=== PATIENT | male | born 1975 | race Caucasian/White ===

== ENCOUNTER 2021-04-26 10:06 | Day surgery (SDC) | payer BC, SELFPAY ==
[2021-04-26] VITALS (8 sets, daily range): BP systolic 87–131; BP diastolic 60–94; PULSE 76–106; RESP 14–20; TEMP 36.1–36.7; O2SAT 96–100; BMI 25.0
--- NOTE | 2021-04-26 10:38 | PCM.HP.BLA ---
History and Physical Date of Admission: 04/26/21 I have re-examined the patient. There are no clinical changes since date of exam. Patient states that he does have some anxiety about being under sedation for the first time. However, he confirms that his bowel prep went well and was gentle. He states that he lost 7 pounds through it and his output is just as clear as his input (which has been Gatorade). We will plan to proceed for EGD and colonoscopy under local MAC with indications being prior severe GERD, IBS, and positive Cologuard.
[2021-04-26] MEDS: Lactated Ringers 1,000 ML 15 ML IV (10:49)
--- NOTE | 2021-04-26 11:15 | IMM_PTH ---
PATIENT: CARLOS ENRIQUE BELTRAN LOC: [facility] U#:[id number] AGE/SX: 46/M ROOM: RE04/26/[address]: Dr. Kareem Haider MD : 1975 BED: DIS: 04/26/2021 SPEC #: [id number] RECD: 04/26/21 14:58 STATUS: LORETTA RESamuel #: [id number] ELLEN: 04/26/21 11:[address]: Kareem Haider DEPT: IMMUNOHISTOCHEMISTRY RECD BY: Raquel Correa ENTERED: 04/26/21 14:58 SP TYPE: IMMUNO OTHR DR: Dr. Tramaine Prado MD Tissues: A - Stomach, NOS Procedures: H Pylori (initial) PHYSICIAN & INSTITUTION [place] [address] SPECIMEN INFORMATION: Tissue Source: A - Antrum biopsy Clinical Info: Severe GERD, IBS, positive Cologuard Specimen Number: [id number] CPT code: 26627 METHODOLOGY: Deparaffinized sections of prefer/formalin-fixed tissue or PAP/DQ stained slides are incubated with monoclonal/polyclonal antibodies/oligonucleotide probes. Localization is made via biotin free immunoperoxidase method. Appropriate controls are performed and reacted as expected. Results on target cell population are indicated in the following table: RESULTS: ANTIBODY / CLONE RESULT Block A H Pylori (polyclonal) negative These tests were developed and their performance characteristics determined by [facility]. They may not have been cleared or approved by the U.S. Food and Drug Administration. The FDA has determined that such clearance or approval is not necessary. INTERPRETATION: A. Antrum biopsy: Negative for Helicobacter pylori organisms. AM:kyra 04/30/2021
--- NOTE | 2021-04-26 11:15 | EGD_PTH ---
PATIENT: CARLOS ENRIQUE BELTRAN LOC: EN U#:[id number] AGE/SX: 46/M ROOM: RE04/26/[address]: Dr. Kareem Haider MD : 1975 BED: DIS: 04/26/2021 SPEC #: [id number] RECD: 04/26/21 13:09 STATUS: LORETTA SRINIVASA #: [id number] ELLEN: 04/26/21 11:[address]: Kareem Haider DEPT: SURGICAL PATHOLOGY RECD BY: Lacey Correa ENTERED: 04/26/21 14:22 SP TYPE: EGD BIOPSY OT DR: Dr. Tramaine Prado MD Tissues: A - Gastric mucous membrane B - COLON BIOPSY C - Stomach, NOS Procedures: Special Stain Group II Surgery Specimen Level IV Alcian Blue/PAS (control) HEADER OPERATION: Colonoscopy, EGD ([facility] [place]) PRE-OP DIAGNOSIS: Severe GERD, IBS, positive Cologuard TISSUE SUBMITTED: A ? Antrum biopsy for H. pylori and path, B ? Posterior lesser curvature polyp, C ? GE junction biopsy MICROSCOPIC DIAGNOSIS A. Gastric antrum, biopsy: Chronic gastritis. See comment. B. Posterior lesser curvature of stomach polyp, biopsy: Superficial fragments of gastric mucosa. C. Gastroesophageal junction, biopsy: Chronic inflammation. No evidence of goblet cell metaplasia. Focal changes of reflux. See comment. AM:kyra 04/29/2021 COMMENT A. The results of immunohistochemistry for Helicobacter pylori will be reported separately ([id number]). C. Alcian blue/PAS stain with matched control supports the above diagnosis. MICROSCOPIC DESCRIPTION Slides are reviewed. GROSS DESCRIPTION A - Received in fixative is one container labeled with the patient's name and designated gastric antrum. The specimen consists of one irregular fragment of light woods soft tissue that measures 0.7 x 0.3 x 0.1 cm. The specimen is totally submitted in one cassette. B - Received in fixative is one container labeled with the patient's name and designated posterior lesser curvature polyp. The specimen consists of multiple irregular fragments of light woods soft tissue that in aggregate measure 0.5 x 0.5 x 0.1 cm. The specimen is totally submitted in one cassette. C - Received in fixative is one container labeled with the patient's name and designated GE junction biopsy. The specimen consists of multiple irregular fragments of light woods soft tissue that in aggregate measure 0.5 x 0.5 x 0.1 cm. The specimen is totally submitted in one cassette. / AM:kyra 04/26/21 TC:3 CPT: 78430 x3, 27230
--- NOTE | 2021-04-26 12:43 | OP.CCLET_ITS ---
04/26/2021 Tramaine Prado Md Re : Upper GI endoscopy procedure for Tyler Vazquez Dear [place] This procedure was performed on Monday, April 26, 2021. My impressions and recommendations are as follows: Impressions : - Normal second portion of the duodenum. No specimens collected. - Gastritis. Biopsied. - A single gastric polyp. Resected and retrieved. - Large hiatal hernia. No specimens collected. - LA Grade A esophagitis. Biopsied. - Z-line regular, 38 cm from the incisors. No specimens collected. Recommendations : - Discharge patient to home (via wheelchair). - Resume regular diet today. - Continue present medications. - Await pathology results. - Telephone my office for pathology results in 1 week. My findings are described in the full procedure note, which is enclosed. If I can be of further assistance, please feel free to contact me at Doctor phone number(s): , Work: . Sincerely, Kareem Haider MD 04/26/2021 12:43:08 PM This report has been signed electronically.
--- NOTE | 2021-04-26 12:43 | OP.EGD_ITS ---
Patient Name: Tyler Vazquez Procedure Date: 04/26/2021 11:30 AM Date of : 1975 Age: 46 Procedure: Upper GI endoscopy Indications: Gastro-esophageal reflux disease Providers: Kareem Haider MD Medicines: See the Anesthesia note for documentation of the administered medications Patient Profile: Refer to note in patient chart for documentation of history and physical. Complications: No immediate complications. Estimated blood loss: Minimal. Procedure: Pre-Anesthesia Assessment: - The anesthesia plan was to use moderate sedation/analgesia (conscious sedation). - The heart rate, respiratory rate, oxygen saturations, blood pressure, adequacy of pulmonary ventilation, and response to care were monitored throughout the procedure. After obtaining informed consent, the endoscope was passed under direct vision. Throughout the procedure, the patient's blood pressure, pulse, and oxygen saturations were monitored continuously. The Endoscope was introduced through the mouth, and advanced to the second part of duodenum. The upper GI endoscopy was technically difficult and complex due to abnormal anatomy. Successful completion of the procedure was aided by using scope torsion. Scope In: 11:40:55 AM Scope Out: 12:03:02 PM Total Procedure Duration Time 0 hours 22 minutes 7 seconds Findings: The second portion of the duodenum was normal. No biopsies or other specimens were collected for this exam. Localized mild inflammation characterized by erythema was found in the gastric antrum. Biopsies were taken with a cold forceps for histology. Biopsies were taken with a cold forceps for Helicobacter pylori cultures. Estimated blood loss was minimal. A single 5 mm pedunculated and sessile polyp with no bleeding and no stigmata of recent bleeding was found on the posterior wall of the stomach. The polyp was removed with a hot snare. Resection was complete, and retrieval was complete. Estimated blood loss was minimal. A large hiatal hernia was present. No biopsies or other specimens were collected for this exam. LA Grade A (one or more mucosal breaks less than 5 mm, not extending between tops of 2 mucosal folds) esophagitis with no bleeding was found 37 to 38 cm from the incisors. Biopsies were taken with a cold forceps for histology. Estimated blood loss was minimal. The Z-line was regular and was found 38 cm from the incisors. No biopsies or other specimens were collected for this exam. Impression: - Normal second portion of the duodenum. No specimens collected. - Gastritis. Biopsied. - A single gastric polyp. Resected and retrieved. - Large hiatal hernia. No specimens collected. - LA Grade A esophagitis. Biopsied. - Z-line regular, 38 cm from the incisors. No specimens collected. Recommendation: - Discharge patient to home (via wheelchair). - Resume regular diet today. - Continue present medications. - Await pathology results. - Telephone my office for pathology results in 1 week. Procedure Code(s): --- Professional --- 43264, Esophagogastroduodenoscopy, flexible, transoral; with removal of tumor(s), polyp(s), or other lesion(s) by snare technique 43203, 59, Esophagogastroduodenoscopy, flexible, transoral; with biopsy, single or multiple Diagnosis Code(s): --- Professional --- K29.70, Gastritis, unspecified, without bleeding K31.7, Polyp of stomach and duodenum K44.9, Diaphragmatic hernia without obstruction or gangrene K20.9, Esophagitis, unspecified K21.9, Gastro-esophageal reflux disease without esophagitis CPT copyright 2017 [employer]. All rights reserved. The codes documented in this report are preliminary and upon news clipping cutter review may be revised to meet current compliance requirements. Kareem Haider MD 04/26/2021 12:43:08 PM This report has been signed electronically. Number of Addenda: 0 Note Initiated On: 04/26/2021 11:30 AM
--- NOTE | 2021-04-26 12:48 | OP.CCLET_ITS ---
04/26/2021 Tramaine Prado Md Re : Colonoscopy procedure for Tyler Vazquez Dear Eve This procedure was performed on Monday, April 26, 2021. My impressions and recommendations are as follows: Impressions : - There was significant looping of the colon. - There was significant looping of the colon. - The entire examined colon is normal. No specimens collected. - The distal rectum and anal verge are normal on retroflexion view. Recommendations : - Discharge patient to home (via wheelchair). - Resume regular diet today. - Continue present medications. - Repeat colonoscopy in 5 years for screening purposes. - Telephone my office for study results in 1 week. My findings are described in the full procedure note, which is enclosed. If I can be of further assistance, please feel free to contact me at Doctor phone number(s): , Work: . Sincerely, Kareem Haider MD 04/26/2021 12:48:35 PM This report has been signed electronically.
--- NOTE | 2021-04-26 12:48 | OP.COLON_ITS ---
Patient Name: Tyler Vazquez Procedure Date: 04/26/2021 12:05 PM Date of : 1975 Age: 46 Procedure: Colonoscopy Indications: Positive Cologuard test Providers: Kareem Haider MD Medicines: See the Anesthesia note for documentation of the administered medications Patient Profile: Refer to note in patient chart for documentation of history and physical. Refer to note in patient chart for documentation of history and physical. Last Colonoscopy: none. The patient's first colonoscopy is today. Complications: No immediate complications. Estimated blood loss: None. Procedure: Pre-Anesthesia Assessment: - The anesthesia plan was to use moderate sedation/analgesia (conscious sedation). - The heart rate, respiratory rate, oxygen saturations, blood pressure, adequacy of pulmonary ventilation, and response to care were monitored throughout the procedure. - The anesthesia plan was to use moderate sedation/analgesia (conscious sedation). - The heart rate, respiratory rate, oxygen saturations, blood pressure, adequacy of pulmonary ventilation, and response to care were monitored throughout the procedure. After I obtained informed consent, the scope was passed under direct vision. Throughout the procedure, the patient's blood pressure, pulse, and oxygen saturations were monitored continuously. The pediatric colonoscope was introduced through the anus and advanced to the cecum, identified by the ileocecal valve. The colonoscopy was technically difficult and complex due to unusual anatomy. Successful completion of the procedure was aided by applying abdominal pressure. The patient tolerated the procedure fairly well. The quality of the bowel preparation was adequate to identify polyps. Scope In: 12:07:05 PM Scope Withdrawal Time 0 hours 17 minutes 30 seconds Scope Out: 12:34:29 PM Total Procedure Duration Time 0 hours 27 minutes 24 seconds Findings: The ascending colon revealed mildly excessive looping. Advancing the scope required using manual pressure. The sigmoid colon revealed moderately excessive looping. Advancing the scope required using manual pressure. The colon (entire examined portion) appeared normal. No biopsies or other specimens were collected for this exam. The retroflexed view of the distal rectum and anal verge was normal and showed no anal or rectal abnormalities. No biopsies or other specimens were collected for this exam. Impression: - There was significant looping of the colon. - There was significant looping of the colon. - The entire examined colon is normal. No specimens collected. - The distal rectum and anal verge are normal on retroflexion view. Recommendation: - Discharge patient to home (via wheelchair). - Resume regular diet today. - Continue present medications. - Repeat colonoscopy in 5 years for screening purposes. - Telephone my office for study results in 1 week. Procedure Code(s): --- Professional --- 59455, Colonoscopy, flexible; diagnostic, including collection of specimen(s) by brushing or washing, when performed (separate procedure) Diagnosis Code(s): --- Professional --- R19.5, Other fecal abnormalities CPT copyright 2017 [employer]. All rights reserved. The codes documented in this report are preliminary and upon stippler review may be revised to meet current compliance requirements. Kareem Haider MD 04/26/2021 12:48:35 PM This report has been signed electronically. Number of Addenda: 0 Note Initiated On: 04/26/2021 12:05 PM
== END 2021-04-26 13:53 | disposition home or self-care (01) ==
LOC: EN 10:12 → AC 10:12
PROVIDERS: PCP Family Medicine; Referring Provider Family Medicine; Visit Provider Surgery
PROC: 0DJD8ZZ Inspection of Lower Intestinal Tract, Via Natural or Artificial Opening Endoscopic (ICD-10-PCS; CPT 45378; principal; 2021-04-26 11:10)
DX: K21.00 Gastro-esophageal reflux disease with esophagitis, without bleeding (principal); K58.9 Irritable bowel syndrome, unspecified; K29.50 Unspecified chronic gastritis without bleeding; K31.7 Polyp of stomach and duodenum; K44.9 Diaphragmatic hernia without obstruction or gangrene; K56.2 Volvulus; R19.5 Other fecal abnormalities; M19.90 Unspecified osteoarthritis, unspecified site; Z79.899 Other long term (current) drug therapy
CPT/HCPCS: 43239; 43251; 45378; 88305; 88313; 88342; J7120; J2405